=== PATIENT | female | born 1970 | race Caucasian/White ===

== ENCOUNTER 2023-03-30 18:58 | Emergency (ER) | payer MEDICAID ==
[~2023-03-30] VITALS: Ht 167.6 cm; Wt 79.5 kg
[2023-03-30 19:09] VITALS: BP 156/116; PULSE 118; RESP 18; TEMP 97.9; O2SAT 94
[2023-03-30] MEDS ORDERED: CEPH-585 PO (19:46)
== END 2023-03-30 20:24 | disposition home or self-care (01) ==
LOC: ER 19:00
DX: S01.112A Laceration without foreign body of left eyelid and periocular area, initial encounter (principal); Z88.8 Allergy status to other drugs, medicaments and biological substances; Z88.5 Allergy status to narcotic agent; W50.0XXA Accidental hit or strike by another person, initial encounter; Y93.89 Activity, other specified; Y92.89 Other specified places as the place of occurrence of the external cause; Y99.8 Other external cause status
CPT/HCPCS: 12011; 99283